=== PATIENT | female | born 1995 | race Native Hawaiian/Other Pacific Islander ===

== ENCOUNTER 2018-06-07 11:04 | Emergency (ER) | payer OTHER ==
[2018-06-07 11:11] VITALS: BP 102/57
[2018-06-07] MEDS ORDERED: NACL 0.9% 1000 ML 1,000 ML IV ONE (13:10)
--- NOTE | 2018-06-07 13:13 | Emergency Department Report ---
ED Syncope HPI - General Chief Complaint: Syncope Stated Complaint: PREG AND PASSED OUT Time Seen by Provider: 06/07/18 13:00 Source: patient - History of Present Illness Initial Comments: Patient reports that she was at work and got hot and sweaty and passed out. She says she blacked out briefly which was witnessed. She says she went picture off the floor. She says she feels fine now. Patient reports that she is 9 weeks which was confirmatory Department via a urine test and based on her last menstrual cycle. She reports that she has been having nausea and vomiting for over 2 weeks. She also reports she is having some abdominal cramping on and off. She denies any headache. Denies any chest pain or shortness of breath. Denies any swelling to extremities. Patient does have a primary care physician and she has not has ENERGY MANAGEMENT SPECIALIST who is Dr. Kemi Leija which she says she has an appointment but was told to continue emergency room because she fell out. She says she does not eat regular meals and she states that she has had 2 pregnancies in the past where she has never had any problems. Denies urinary burning, frequency or urgency. Denies any head trauma. Timing/Prior Episodes: no prior history Precipitating Factors: Positive: nausea (nausea and vomiting and reported .) Context: sitting Loss of Consciousness: brief (seconds) Current Symptoms: nausea. denies: blurred vision, chest pain, diaphoresis, dizziness, headache, injury, lightheadedness, loss of bladder control, loss of bowel control, motionless, pale, shallow/rapid breathing, weak/absent pulse, weakness - Related Data Allergies/Adverse Reactions: Allergies No Known Allergies Allergy (Unverified 06/07/18 11:08) Home Medications: Ambulatory Orders Doxylamine Succinate/Vit B6 [Fay Mcdonnell 10-10 mg Tablet] 1 each PO QHS PRN #15 tablet. 06/07/18 Nitrofurantoin Monohyd/M-Cryst [Macrobid 100 mg Capsule] 100 mg PO Q12H 5 Days # 10 capsule 06/07/18 ED Review of Systems ROS: Stated complaint: PREG AND PASSED OUT Other details as noted in HPI Constitutional: denies: chills, fever Eyes: denies: eye discharge ENT: denies: ear pain, throat pain, congestion Respiratory: denies: cough, shortness of breath, SOB with exertion, SOB at rest , stridor, wheezing Cardiovascular: denies: chest pain, palpitations, edema, syncope Gastrointestinal: abdominal pain, nausea, vomiting. denies: diarrhea, constipation, hematemesis, melena, hematochezia Genitourinary: denies: urgency, dysuria, frequency, hematuria, discharge, abnormal menses, dyspareunia Musculoskeletal: denies: back pain, joint swelling, arthralgia Skin: denies: rash, lesions Neurological: other (reported syncope). denies: headache, weakness, numbness, paresthesias, confusion Hematological/Lymphatic: denies: easy bleeding, easy bruising ED Past Medical Hx - Past Medical History Previous Medical History?: No - Surgical History Past Surgical History?: No - Family History Family history: no significant - Social History Smoking Status: Never Smoker Substance Use Type: None - Medications Home Medications: Home Medications Medication Instructions Recorded Confirmed Last Taken Type Doxylamine Succinate/Vit B6 1 each PO QHS PRN #15 tablet. 06/07/18 Unknown Rx [Diclegis Dr 10-10 mg Tablet] Nitrofurantoin Monohyd/M-Cryst 100 mg PO Q12H 5 Days #10 capsule 06/07/18 Unknown Rx [Macrobid 100 mg Capsule] ED Physical Exam - General Limitations: No Limitations General appearance: alert, in no apparent distress - Head Head exam: Present: atraumatic, normocephalic, normal inspection, other (normal exam) - Eye Eye exam: Present: normal appearance, PERRL, EOMI. Absent: nystagmus, periorbital swelling, periorbital tenderness Pupils: Present: normal accommodation - ENT ENT exam: Present: normal exam, normal orophraynx, mucous membranes moist, TM's normal bilaterally, normal external ear exam - Neck Neck exam: Present: normal inspection, full ROM, other (no C-spine tenderness). Absent: tenderness, lymphadenopathy - Respiratory Respiratory exam: Present: normal lung sounds bilaterally. Absent: respiratory distress, chest wall tenderness - Cardiovascular Cardiovascular Exam: Present: normal rhythm, tachycardia, normal heart sounds. Absent: systolic murmur, diastolic murmur - GI/Abdominal GI/Abdominal exam: Present: soft, tenderness (suprapubic area.), normal bowel sounds. Absent: distended, guarding, rebound, rigid, organomegaly, mass, pulsatile mass, hernia - Extremities Exam Extremities exam: Present: normal inspection, full ROM, normal capillary refill , other (No cce. + 2 pulses in all extremities, no neurovascular compromise). Absent: tenderness, pedal edema, joint swelling, calf tenderness - Back Exam Back exam: Present: normal inspection, full ROM, other (ambulates without any difficulties). Absent: tenderness, CVA tenderness (R), CVA tenderness (L), muscle spasm, paraspinal tenderness, vertebral tenderness, rash noted - Neurological Exam Neurological exam: Present: alert, oriented X3, normal gait, reflexes normal. Absent: motor sensory deficit - Expanded Neurological Exam Expanded Neurological exam: Absent: innattentive, memory loss-remote event, memory loss- recent event, ataxia, receptive aphasia, expressive aphasia, total aphasia, tremor, protecting the airway Patient oriented to: Present: person, place, time Speech: Present: fluid speech Cranial nerves: EOM's Intact: Normal, Gag Reflex: Normal, Tongue Deviation: Normal, Nystagmus: Normal, Facial Sensation: Normal Cerebellar function: Romberg: Normal Upper motor neuron: Pronator Drift: Normal, Sensory Extinction: Normal Sensory exam: Upper Extremity Light Touch: Normal, Upper Extremity Temperature: Normal, UE 2 Point Discrimination: Normal, Lower Extremity Light Touch: Normal, Lower Extremity Temperature: Normal, LE 2 Point Discrimination: Normal Motor strength exam: RUE: 5, LUE: 5, RLE: 5, LLE: 5 Best Eye Response ([place]): (4) open spontaneously Best Motor Response ([place]): (6) obeys commands Best Verbal Response ([place]): (5) oriented [place] Total: 15 - Psychiatric Psychiatric exam: Present: normal affect, normal mood - Skin Skin exam: Present: warm, dry, intact, normal color. Absent: rash ED Course Vital Signs 06/07/18 11:09 Temperature 98.1 F Pulse Rate 102 H Respiratory 16 Rate Blood Pressure 102/57 O2 Sat by Pulse 100 Oximetry Vital Signs 06/07/18 06/07/18 11:09 16:44 Temperature 98.1 F Pulse Rate 102 H 88 Respiratory 16 Rate Blood Pressure 102/57 O2 Sat by Pulse 100 Oximetry - Reevaluation(s) Reevaluation #1: 06/07/18 12:45 Patient received IV fluid normal saline 1 L and emergency room, Zofran for my grams IV with relief of nausea and vomiting. Orthostatic blood pressure taken and documented. Abdominal exam remains the same. Reevaluation #2: 06/07/18 16:46 Patient is stable and says she is feeling a lot better. She is tolerating oral liquids without any nausea or vomiting. She is able to tolerate guzman crackers. Abdomen nontender to palpate in heart rate sped up. EKG stable Reevaluation #3: 06/07/18 16:55 Tylenol 1 g by mouth given in the emergency room for headache and she voiced relief. ED Medical Decision Making - Lab Data Result diagrams: 06/07/18 13:20 06/07/18 13:20 Lab Results 06/07/18 06/07/18 06/07/18 Range/Units 11:14 13:10 13:15 WBC (4.5-11.0) K/mm3 RBC (3.65-5.03) M/mm3 Hgb (10.1-14.3) gm/dl Hct (30.3-42.9) % MCV (79-97) fl MCH (28-32) pg MCHC (30-34) % RDW (13.2-15.2) % Plt Count (140-440) K/mm3 Lymph % (Auto) (13.4-35.0) % [place] % (Auto) (0.0-7.3) % Eos % (Auto) (0.0-4.3) % Baso % (Auto) (0.0-1.8) % Lymph # (1.2-5.4) K/mm3 [place]on # (0.0-0.8) K/mm3 Eos # (0.0-0.4) K/mm3 Baso # (0.0-0.1) K/mm3 Seg Neutrophils % (40.0-70.0) % Seg Neutrophils # (1.8-7.7) K/mm3 Sodium (137-145) mmol/L Potassium (3.6-5.0) mmol/L Chloride (98-107) mmol/L Carbon Dioxide (22-30) mmol/L Anion Gap mmol/L BUN (7-17) mg/dL Creatinine (0.7-1.2) mg/dL Estimated GFR ml/min BUN/Creatinine Ratio % Glucose (65-100) mg/dL POC Glucose 81 (70-105) Calcium (8.4-10.2) mg/dL Total Bilirubin (0.1-1.2) mg/dL AST (5-40) units/L ALT (7-56) units/L Alkaline Phosphatase (35-129) units/L Total Protein (6.3-8.2) g/dL Albumin (3.9-5) g/dL Albumin/Globulin Ratio % HCG, Quant (0-4) mIU/mL Urine Color Yellow (Yellow) Urine Turbidity Clear (Clear) Urine pH 8.0 H (5.0-7.0) Ur Specific [place] 1.018 (1.003-1.030) Urine Protein <15 mg/dl (Negative) mg/dL Urine Glucose (UA) Neg (Negative) mg/dL Urine Ketones Neg (Negative) mg/dL Urine Blood Neg (Negative) Urine Nitrite Neg (Negative) Urine Bilirubin Neg (Negative) Urine Urobilinogen 2.0 (<2.0) mg/dL Ur Leukocyte Esterase Neg (Negative) Urine WBC (Auto) 16.0 H (0.0-6.0) /HPF Urine RBC (Auto) 2.0 (0.0-6.0) /HPF U Epithel Cells (Auto) 4.0 (0-13.0) /HPF Urine Bacteria (Auto) 1+ (Negative) /HPF Calcium Oxalate Crystal 2+ Urine Mucus Few /HPF Urine HCG, Qual Positive A (Negative) 06/07/18 06/07/18 06/07/18 Range/Units 13:20 13:20 13:20 WBC 10.7 (4.5-11.0) K/mm3 RBC 3.86 (3.65-5.03) M/mm3 Hgb 12.5 (10.1-14.3) gm/dl Hct 34.8 (30.3-42.9) % MCV 90 (79-97) fl MCH 33 H (28-32) pg MCHC 36 H (30-34) % RDW 12.6 L (13.2-15.2) % Plt Count 284 (140-440) K/mm3 Lymph % (Auto) 13.5 (13.4-35.0) % Weston % (Auto) 4.6 (0.0-7.3) % Eos % (Auto) 0.5 (0.0-4.3) % Baso % (Auto) 0.3 (0.0-1.8) % Lymph # 1.4 (1.2-5.4) K/mm3 Weston # 0.5 (0.0-0.8) K/mm3 Eos # 0.1 (0.0-0.4) K/mm3 Baso # 0.0 (0.0-0.1) K/mm3 Seg Neutrophils % 81.1 H (40.0-70.0) % Seg Neutrophils # 8.7 H (1.8-7.7) K/mm3 Sodium 136 L (137-145) mmol/L Potassium 3.9 (3.6-5.0) mmol/L Chloride 101.4 (98-107) mmol/L Carbon Dioxide 23 (22-30) mmol/L Anion Gap 16 mmol/L BUN 6 L (7-17) mg/dL Creatinine 0.5 L (0.7-1.2) mg/dL Estimated GFR > 60 ml/min BUN/Creatinine Ratio 12 % Glucose 70 (65-100) mg/dL POC Glucose (70-105) Calcium 9.3 (8.4-10.2) mg/dL Total Bilirubin 0.20 (0.1-1.2) mg/dL AST 10 (5-40) units/L ALT 5 L (7-56) units/L Alkaline Phosphatase 43 (35-129) units/L Total Protein 6.9 (6.3-8.2) g/dL Albumin 3.9 (3.9-5) g/dL Albumin/Globulin Ratio 1.3 % HCG, Quant [id number] H (0-4) mIU/mL Urine Color (Yellow) Urine Turbidity (Clear) Urine pH (5.0-7.0) Ur Specific [place] (1.003-1.030) Urine Protein (Negative) mg/dL Urine Glucose (UA) (Negative) mg/dL Urine Ketones (Negative) mg/dL Urine Blood (Negative) Urine Nitrite (Negative) Urine Bilirubin (Negative) Urine Urobilinogen (<2.0) mg/dL Ur Leukocyte Esterase (Negative) Urine WBC (Auto) (0.0-6.0) /HPF Urine RBC (Auto) (0.0-6.0) /HPF U Epithel Cells (Auto) (0-13.0) /HPF Urine Bacteria (Auto) (Negative) /HPF Calcium Oxalate Crystal Urine Mucus /HPF Urine HCG, Qual (Negative) Urine culture sent - EKG Data -: EKG Interpreted by Me (attending physician) EKG shows normal: sinus rhythm Rate: normal (86 bpm) - EKG Data Interpretation: no acute changes, normal EKG - Radiology Data Radiology results: report reviewed OB ultrasound and transvaginal ultrasound less than 14 very dictated by radiologist report reviewed by myself. See report below for details Patient: GRETA BRADFORD MR#: [id number] : 1995 Acct:[id number] Age/Sex: 23 / F ADM Date: 06/07/18 Loc: ED Attending Dr: Ordering Physician: TONO QUIROZ Date of Service: 06/07/18 Procedure(s): US OB <= 14 weeks fetus Accession Number(s): [id number] cc: TONO QUIROZ ULTRASOUND OB LESS THAN 14 WEEKS FETUS HISTORY: with abdominal cramping. COMPARISON: None. TECHNIQUE: Transabdominal ultrasound with color doppler interrogation. FINDINGS: Uterus: 10 x 8 x 9 cm. No obvious uterine fibroids. Normal cervix. Endometrium: An intrauterine gestational sac containing a pole and yolk sac are identified. Heart rate measures 178 beats per minute. Estimated age of ultrasound is 10 weeks, 2 days. No subchorionic hemorrhage. Right ovary: Normal. Left ovary: Normal. No pelvic fluid or mass is identified. Normal color doppler interrogation. IMPRESSION: Viable, single intrauterine as described. No acute abnormality is detected. Transcribed By: TTR Dictated By: BABITA AYALA JR, MD Electronically Authenticated By: BABITA AYALA JR, MD Signed Date/Time: 06/07/18 152 DD/ 24 TD/TT: 06/07/181526 - Medical Decision Making This is a 23-year-old female reports emergency room report that she is having nausea and vomiting with some pelvic cramping over the last 2 weeks since she found out that she was . Patient reports that she passed out at work today and came to emergency room to be evaluated. She does have ENERGY MANAGEMENT SPECIALIST but has not has a visit. She is not having any vaginal bleeding or discharge. Patient was seen and examined by myself and physical exam including neurological exam with normal findings. She had orthostatic vital signs done please refer to vital signs section for details. Overall sounds were lower lay down and then they were standing. CBC and CMP stable. Urinalysis with 1+ bacteria and increase fluid with no other abnormalities. Urine culture sent and will treat for UTI and . EKG normal sinus rhythm at 84 bpm with no history cardiac abnormalities. OB less than 14 weeks ultrasound dictated by radiologist report reviewed by myself. Patient at 10 weeks and 2 days IUP. heart tone is 178 beats per minutes. She received 1 L normal saline in the emergency room along with 4 mg of Zofran IV and she is feeling much better. I communicate patient her laboratory results along with ultrasound reports, diagnosis and treatment plan and she voiced understanding. Able to tolerates ice water emergency room and also she ate guzman cracker. She has no episode of dizziness or nausea at present and she is able to ambulate without any difficulties. Heart rate is normal. Patient also complained of headache after treatment and she said this because she is hungry and she was given Tylenol 1 g Patient with nausea and vomiting in an that has resolved, abdominal pain in early that has resolved. She will be discharged home on vitamin, Macrobid. Instructed to follow-up with her ENERGY MANAGEMENT SPECIALIST Dr. Kemi Leija in 2 days. I also instructed her that she needs to increase her fluid intake to prevent dehydration and she was discharged home. Critical care attestation.: If time is entered above; I have spent that time in minutes in the direct care of this critically ill patient, excluding procedure time. ED Disposition Clinical Impression: UTI (urinary tract infection) in in first trimester, Abdominal pain during intrauterine , Nausea and vomiting during prior to 22 weeks gestation Syncope Qualifiers: Syncope type: unspecified Qualified Code(s): R55 - Syncope and collapse Disposition: DC-01 TO HOME OR SELFCARE Is pt being admited?: No Does the pt Need Aspirin: No Condition: Stable Instructions: Syncope (ED), Abdominal Pain in (ED), Urinary Tract Infection in Women (ED), Dehydration (ED), Acute Nausea and Vomiting (ED) Additional Instructions: Please increase her fluid intake to at least 2-3 L daily. Call your ENERGY MANAGEMENT SPECIALIST doctor tomorrow to schedule an appointment for follow-up visits care Take Diclegis at night for nausea and vomiting as needed but please do not drive or operate heavy machinery while taking this medication as it causes drowsiness Macrobid for UTI Prescriptions: Doxylamine Succinate/Vit B6 [Diclegis Dr 10-10 mg Tablet] 1 each PO QHS PRN #15 tablet.dr PRN Reason: Nausea And Vomiting Nitrofurantoin Monohyd/M-Cryst [Macrobid 100 mg Capsule] 100 mg PO Q12H 5 Days # 10 capsule Referrals: PRIMARY CARE, [Primary Care Provider] - 3-5 Days SARAH FERREIRA [Staff Physician] - 06/09/18 follow-up with your, ENERGY MANAGEMENT SPECIALIST in 2 days [Other] - 06/09/18 (Dr. Kemi Dolan) Forms: Work/School Release Form(ED)
[2018-06-07] MEDS ORDERED: ZOFRAN IV ONE (13:14)
[2018-06-07 13:36] LABS: Basophils % (Auto) 0.3 % (0.0-1.8); Eosinophils # (Auto) 0.1 K/mm3 (0.0-0.4); Eosinophils % (Auto) 0.5 % (0.0-4.3); Hematocrit 34.8 % (30.3-42.9); Hemoglobin 12.5 gm/dl (10.1-14.3); Lymphocytes # (Auto) 1.4 K/mm3 (1.2-5.4); Lymphocytes % (Auto) 13.5 % (13.4-35.0); Mean Corpuscular HGB Conc 36 % (30-34); Mean Corpuscular Hemoglobin 33 pg (28-32); Mean Corpuscular Volume 90 fl (79-97); Monocytes # (Auto) 0.5 K/mm3 (0.0-0.8); Monocytes % (Auto) 4.6 % (0.0-7.3); Platelet Count 284 K/mm3 (140-440); Red Blood Count 3.86 M/mm3 (3.65-5.03); Red Cell Distribution Width 12.6 % (13.2-15.2)
[2018-06-07 13:49] LABS: Alanine Aminotransferase 5 units/L (7-56); Albumin 3.9 g/dL (3.9-5); BUN/Creatinine Ratio 12; Blood Urea Nitrogen 6 mg/dL (7-17); Calcium 9.3 mg/dL (8.4-10.2); Hemolysis Index 6
[2018-06-07 13:49] LABS: HCG Qualitative,Urine Positive (Negative)
--- NOTE | 2018-06-07 15:33 | Ultrasound Report ---
ULTRASOUND OB LESS THAN 14 WEEKS FETUS HISTORY: with abdominal cramping. COMPARISON: None. TECHNIQUE: Transabdominal ultrasound with color doppler interrogation. FINDINGS: Uterus: 10 x 8 x 9 cm. No obvious uterine fibroids. Normal cervix. Endometrium: An intrauterine gestational sac containing a pole and yolk sac are identified. Heart rate measures 178 beats per minute. Estimated age of ultrasound is 10 weeks, 2 days. No subchorionic hemorrhage. Right ovary: Normal. Left ovary: Normal. No pelvic fluid or mass is identified. Normal color doppler interrogation. IMPRESSION: Viable, single intrauterine as described. No acute abnormality is detected.
[2018-06-07] MEDS ORDERED: TYLENOL ONE (16:02)
[2018-06-07 16:12] LABS: Bacteria,Urine 1+ /HPF (Negative); Bilirubin,Urine NEG (Negative); Blood,Urine NEG (Negative); Calcium Oxalate Crystals,Urine 2+; Color,Urine Yellow (Yellow); Mucus,Urine FEW /HPF; Protein,Urine <15 mg/dL mg/dL (Negative)
[2018-06-07] MEDS ORDERED: TYLENOL PO ONE (16:55)
== END 2018-06-07 17:28 | disposition home or self-care (01) ==
LOC: ED 11:04
DX: O23.41 Unspecified infection of urinary tract in pregnancy, first trimester (principal); O21.9 Vomiting of pregnancy, unspecified; R55 Syncope and collapse; R11.0 Nausea; R10.2 Pelvic and perineal pain
CPT/HCPCS: 36415; 76801; 80053; 81001; 81025; 82962; 84702; 85025; 93005; 93010; 96361; 96374; 99284; J2405; J7030

== ENCOUNTER 2020-06-12 09:38 | Emergency (ER) | payer OTHER ==
[2020-06-12 10:28] LABS: Hematocrit 39.7 % (30.3-42.9); Hemoglobin 13.5 gm/dl (10.1-14.3); Mean Corpuscular HGB Conc 34 % (30-34); Mean Corpuscular Volume 91 fl (79-97); Platelet Count 305 K/mm3 (140-440); Red Blood Count 4.34 M/mm3 (3.65-5.03); Red Cell Distribution Width 12.9 % (13.2-15.2)
[2020-06-12 11:35] LABS: Blood Urea Nitrogen 11 mg/dL (7-17); Calcium 9.4 mg/dL (8.4-10.2); Hemolysis Index 16
[2020-06-12 11:46] LABS: BUN/Creatinine Ratio 18
[2020-06-12] MEDS ORDERED: ONDANSETRON 4 MG/2 ML INJ IV ONE ×3 (12:10→14:35)
[2020-06-12] MEDS ORDERED: SODIUM CHLORIDE 0.9% 1000 ML 1,000 ML IV ONE ×2 (12:10→14:13)
--- NOTE | 2020-06-12 12:14 | Emergency Department Report ---
ED General Adult HPI - General Chief complaint: Nausea/Vomiting/Diarrhea Stated complaint: PREG, PASSED OUT Time Seen by Provider: 06/12/20 12:04 Source: patient Mode of arrival: Ambulatory Limitations: No Limitations - History of Present Illness Initial comments: Patient is 25-year-old female 4 para 3 at approximately 4 weeks gestation. Patient stated that her last menstrual period was April 18. Patient presented to the ER complaining of nausea and vomiting described as excessive vomiting. Patient stated that she just found out that she is . Patient denied any fever or chills. No chest pain or shortness of breath or cough. Lam quevedo also reported watery diarrhea. Patient denied any vaginal bleeding or vaginal discharge. Patient also denied any abdominal cramping. Patient is actively vomiting in the emergency room. - Related Data Previous Rx's Medication Instructions Recorded Last Taken Type Doxylamine Succinate/Vit B6 1 each PO QHS PRN #15 tablet. 06/07/18 Unknown Rx [Fay Mcdonnell 10-10 mg Tablet] Nitrofurantoin Monohyd/M-Cryst 100 mg PO Q12H 5 Days #10 capsule 06/07/18 Unknown Rx [Macrobid 100 mg Capsule] Allergies Allergy/AdvReac Type Severity Reaction Status Date / Time No Known Allergies Allergy Unverified 06/07/18 11:08 ED Review of Systems ROS: Stated complaint: PREG, PASSED OUT Other details as noted in HPI Comment: All other systems reviewed and negative Constitutional: denies: chills, fever Respiratory: denies: cough, shortness of breath, SOB at rest, wheezing Cardiovascular: denies: chest pain, palpitations Gastrointestinal: nausea, vomiting, diarrhea. denies: abdominal pain, constipation, hematemesis, melena, hematochezia Genitourinary: denies: dysuria Neurological: weakness (Generalized.). denies: headache, numbness, paresthesias, confusion, abnormal gait ED Past Medical Hx - Past Medical History Previous Medical History?: Yes - Surgical History Past Surgical History?: No - Social History Smoking Status: Former Smoker Substance Use Type: None - Medications Home Medications: Home Medications Medication Instructions Recorded Confirmed Last Taken Type Doxylamine Succinate/Vit B6 1 each PO QHS PRN #15 tablet. 06/07/18 Unknown Rx [Dicleyash Mcdonnell 10-10 mg Tablet] Nitrofurantoin Monohyd/M-Cryst 100 mg PO Q12H 5 Days #10 capsule 06/07/18 U nknown Rx [Macrobid 100 mg Capsule] ED Physical Exam - General Limitations: No Limitations General appearance: alert, other (Actively vomiting and dry heaving.) - Head Head exam: Present: atraumatic, normocephalic, normal inspection - Eye Eye exam: Present: normal appearance - ENT ENT exam: Present: mucous membranes dry - Neck Neck exam: Present: normal inspection, full ROM. Absent: tenderness, meningismus, lymphadenopathy, thyromegaly - Respiratory Respiratory exam: Present: normal lung sounds bilaterally - Cardiovascular Cardiovascular Exam: Present: regular rate, normal rhythm, normal heart sounds - GI/Abdominal GI/Abdominal exam: Present: soft, normal bowel sounds. Absent: distended, tenderness, guarding, rebound, rigid, organomegaly, mass, bruit, pulsatile mass, hernia - Extremities Exam Extremities exam: Present: normal inspection, full ROM, normal capillary refill. Absent: pedal edema, calf tenderness - Back Exam Back exam: Absent: CVA tenderness (R), CVA tenderness (L) - Neurological Exam Neurological exam: Present: alert, oriented X3, CN II-XII intact, normal gait, reflexes normal. Absent: motor sensory deficit - Psychiatric Psychiatric exam: Present: normal mood - Skin Skin exam: Present: warm, intact, normal color ED Course Vital Signs 06/12/20 06/12/20 06/12/20 09:55 12:11 12:15 Temperature 97.5 F L 98.3 F Pulse Rate 74 68 Respiratory 16 18 Rate Blood Pressure 102/61 102/48 Blood Pressure 95/56 [Left] O2 Sat by Pulse 100 100 100 Oximetry 06/12/20 06/12/20 06/12/20 12:31 12:48 13:00 Temperature Pulse Rate 130 H 84 Respiratory 19 Rate Blood Pressure 94/51 102/48 95/47 Blood Pressure [Left] O2 Sat by Pulse 94 100 100 Oximetry ED Medical Decision Making - Lab Data Result diagrams: 06/12/20 10:17 06/12/20 10:17 - Medical Decision Making Patient is 25-year-old female 4 para 3 at approximately 4 weeks gestation. Patient stated that her last menstrual period was April 18. Patient presented to the ER complaining of nausea and vomiting described as excessive vomiting. Patient stated that she just found out that she is . Patient denied any fever or chills. No chest pain or shortness of breath or cough. Patient also reported watery diarrhea. Patient denied any vaginal bleeding or vaginal discharge. Patient also denied any abdominal cramping. Patient is actively vomiting in the emergency room. Patient received 2 L of normal saline. Zofran 4 mg x 2. Patient stated that she is feeling much better. No vomiting or dry heaving. Labs reviewed and is unremarkable. Ultrasound showed a 6-week viable . Patient advised to follow-up with her OB doctor in the next 2 to 3 days and to return to the ER if she develop any new symptoms. Patient given Zofran prescription for nausea. Critical care attestation.: If time is entered above; I have spent that time in minutes in the direct care of this critically ill patient, excluding procedure time. ED Disposition Clinical Impression: Acute nausea with nonbilious vomiting, Abdominal pain affecting Disposition: DC-01 TO HOME OR SELFCARE Is pt being admited?: No Condition: Stable Instructions: Acute Nausea and Vomiting (ED), (ED) Referrals: PRIMARY CARE, [Primary Care Provider] - 3-5 Days
[2020-06-12 13:15] LABS: Bilirubin,Urine NEG (Negative); Blood,Urine NEG (Negative); Color,Urine Yellow (Yellow); Mucus,Urine 1+ /HPF; Urobilinogen,Urine < 2.0 mg/dL (<2.0)
--- NOTE | 2020-06-12 13:55 | Ultrasound Report ---
US OB <= 14 weeks fetus INDICATION / CLINICAL INFORMATION: Abdominal pain . COMPARISON: None available. FINDINGS: Single, viable intrauterine , heart rate 120. Vonore-rump length measures 5.90 m, corresponding to a gestational age of 6 weeks 3 days. Right ovary is normal. Left ovary contains a very small (1 cm) cyst. No free fluid. IMPRESSION: 1. Single, viable 6 week 3 day intrauterine . Signer Name: Rory Demarco MD Signed: 06/12/2020 1:51 PM Workstation Name: [id number]
[2020-06-12 16:12] VITALS: BP 115/70
== END 2020-06-12 17:03 | disposition home or self-care (01) ==
LOC: ED 09:38
DX: O21.8 Other vomiting complicating pregnancy (principal); O26.891 Other specified pregnancy related conditions, first trimester; R10.9 Unspecified abdominal pain; Z3A.01 Less than 8 weeks gestation of pregnancy; Z87.891 Personal history of nicotine dependence; Z79.899 Other long term (current) drug therapy
CPT/HCPCS: 36415; 76801; 80048; 81001; 83690; 84702; 84703; 85027; 96361; 96374; 96376; 99284; J2405; J7030